=== PATIENT | male | born 1955 | race Caucasian/White ===

== ENCOUNTER 2022-09-13 09:00 | Outpatient (RCR) | payer MEDICARE, BC, SELFPAY | END 2022-09-13 23:59 | disposition home or self-care (01) | LOC: CR 09:00 | PROVIDERS: PCP Family Medicine; Referring Provider Student in an Organized Health Care Education/Training Program; Visit Provider Internal Medicine Cardiovascular Disease | DX: Z51.89 Encounter for other specified aftercare (principal); I25.10 Atherosclerotic heart disease of native coronary artery without angina pectoris; Z95.5 Presence of coronary angioplasty implant and graft | CPT/HCPCS: S9472 ==

== ENCOUNTER 2022-10-13 09:53 | Outpatient (RCR) | payer MEDICARE, BC, SELFPAY | END 2022-10-14 23:59 | disposition home or self-care (01) | LOC: CR 09:53 | PROVIDERS: PCP Family Medicine; Referring Provider Student in an Organized Health Care Education/Training Program; Visit Provider Internal Medicine Cardiovascular Disease | DX: I25.10 Atherosclerotic heart disease of native coronary artery without angina pectoris (principal); Z95.5 Presence of coronary angioplasty implant and graft | CPT/HCPCS: S9472 ==

== ENCOUNTER 2022-11-10 09:51 | Outpatient (RCR) | payer MEDICARE, BC, SELFPAY | END 2022-11-14 23:59 | disposition home or self-care (01) | LOC: CR 09:51 | PROVIDERS: PCP Family Medicine; Referring Provider Student in an Organized Health Care Education/Training Program; Visit Provider Internal Medicine Cardiovascular Disease | DX: I25.10 Atherosclerotic heart disease of native coronary artery without angina pectoris (principal); Z95.5 Presence of coronary angioplasty implant and graft; Z51.89 Encounter for other specified aftercare | CPT/HCPCS: S9472 ==

== ENCOUNTER 2022-12-06 10:26 | Outpatient (RCR) | payer MEDICARE, BC, SELFPAY | END 2022-12-12 23:59 | disposition home or self-care (01) | LOC: CR 10:26 | PROVIDERS: PCP Family Medicine; Referring Provider Student in an Organized Health Care Education/Training Program; Visit Provider Internal Medicine Cardiovascular Disease | DX: I25.10 Atherosclerotic heart disease of native coronary artery without angina pectoris (principal); Z95.5 Presence of coronary angioplasty implant and graft; Z51.89 Encounter for other specified aftercare | CPT/HCPCS: S9472 ==

== ENCOUNTER 2023-01-12 08:56 | Outpatient (RCR) | payer MEDICARE, BC, SELFPAY | END 2023-01-12 23:59 | disposition home or self-care (01) | LOC: CR 08:56 | PROVIDERS: PCP Family Medicine; Referring Provider Student in an Organized Health Care Education/Training Program; Visit Provider Internal Medicine Cardiovascular Disease | DX: I25.10 Atherosclerotic heart disease of native coronary artery without angina pectoris (principal); Z95.5 Presence of coronary angioplasty implant and graft | CPT/HCPCS: S9472 ==

== ENCOUNTER 2023-02-09 09:07 | Outpatient (RCR) | payer MEDICARE, BC, SELFPAY | END 2023-02-11 23:59 | disposition home or self-care (01) | LOC: CR 09:07 | PROVIDERS: PCP Family Medicine; Referring Provider Student in an Organized Health Care Education/Training Program; Visit Provider Internal Medicine Cardiovascular Disease | DX: I25.2 Old myocardial infarction (principal); Z95.5 Presence of coronary angioplasty implant and graft; Z51.89 Encounter for other specified aftercare | CPT/HCPCS: S9472 ==

== ENCOUNTER 2023-02-14 09:13 | Outpatient (RCR) | payer MEDICARE, BC, SELFPAY | END 2023-03-14 23:59 | disposition home or self-care (01) | LOC: CR 09:13 | PROVIDERS: PCP Family Medicine; Referring Provider Student in an Organized Health Care Education/Training Program; Visit Provider Internal Medicine Cardiovascular Disease | DX: I25.10 Atherosclerotic heart disease of native coronary artery without angina pectoris (principal); Z95.5 Presence of coronary angioplasty implant and graft; Z51.89 Encounter for other specified aftercare | CPT/HCPCS: S9472 ==

== ENCOUNTER 2023-03-14 11:05 | Outpatient (RCR) | payer SELFPAY ==
[2023-02-21 11:30] VITALS: BP 165/88; PULSE 81
[2023-02-23 11:01] VITALS: BP 168/83; PULSE 56
[2023-02-28 13:34] VITALS: BP 179/90; PULSE 58
[2023-03-02 11:00] VITALS: BP 163/79; PULSE 90
[2023-03-07 11:07] VITALS: BP 180/81; PULSE 53
[2023-03-09 11:31] VITALS: BP 178/85; PULSE 52
[2023-03-14 11:07] VITALS: BP 164/79; PULSE 51
[2023-03-16 11:20] VITALS: BP 160/85; PULSE 56
== END 2023-03-14 23:59 | disposition home or self-care (01) ==
LOC: CR 11:05
PROVIDERS: PCP Family Medicine; Visit Provider Internal Medicine Cardiovascular Disease

== ENCOUNTER 2023-04-11 11:01 | Outpatient (RCR) | payer SELFPAY ==
[2023-03-15 00:20] VITALS: BP 164/79; PULSE 51
[2023-03-21 10:57] VITALS: BP 175/85; PULSE 50
[2023-03-28 11:10] VITALS: BP 171/80; PULSE 56
[2023-03-30 11:00] VITALS: BP 182/89; PULSE 51
[2023-04-04 11:13] VITALS: BP 182/84; PULSE 73
[2023-04-06 11:10] VITALS: BP 165/69; PULSE 53
[2023-04-11 11:31] VITALS: BP 176/81; PULSE 57
== END 2023-04-13 23:59 | disposition home or self-care (01) ==
LOC: CR 11:01
PROVIDERS: PCP Family Medicine; Visit Provider Internal Medicine Cardiovascular Disease
DX: R69 Illness, unspecified (principal)

== ENCOUNTER 2023-05-11 11:13 | Outpatient (RCR) | payer SELFPAY ==
[2023-04-14 00:08] VITALS: BP 176/81; PULSE 57
[2023-04-18 14:26] VITALS: BP 155/78; PULSE 55
[2023-04-20 11:17] VITALS: BP 156/79; PULSE 58
[2023-04-27 14:16] VITALS: BP 160/70; PULSE 51
[2023-04-27 14:17] VITALS: BP 133/56
[2023-05-02 11:34] VITALS: BP 142/73; PULSE 51
[2023-05-04 11:35] VITALS: BP 145/86; PULSE 78
[2023-05-09 11:06] VITALS: BP 163/87; PULSE 60
[2023-05-11 11:32] VITALS: BP 149/71; PULSE 55
== END 2023-05-14 23:59 | disposition home or self-care (01) ==
LOC: CR 11:13
PROVIDERS: PCP Family Medicine; Visit Provider Internal Medicine Cardiovascular Disease
DX: R69 Illness, unspecified (principal)

== ENCOUNTER 2023-06-08 11:02 | Outpatient (RCR) | payer SELFPAY ==
[2023-05-15 00:12] VITALS: BP 149/71; PULSE 55
[2023-05-16 11:55] VITALS: BP 152/70; PULSE 49
[2023-05-30 10:55] VITALS: BP 156/70; PULSE 47
[2023-06-01 13:20] VITALS: BP 167/80; PULSE 53
[2023-06-06 15:26] VITALS: BP 147/73; PULSE 50
[2023-06-08 11:35] VITALS: BP 159/73; PULSE 53
== END 2023-06-14 23:59 | disposition home or self-care (01) ==
LOC: CR 11:02
PROVIDERS: PCP Family Medicine; Visit Provider Internal Medicine Cardiovascular Disease
DX: R69 Illness, unspecified (principal)

== ENCOUNTER 2023-07-11 11:00 | Outpatient (RCR) | payer SELFPAY ==
[2023-06-15 00:19] VITALS: BP 159/73; PULSE 53
[2023-06-15 13:48] VITALS: BP 155/67; PULSE 49
[2023-06-20 14:56] VITALS: BP 147/74; PULSE 53
[2023-06-27 11:57] VITALS: BP 150/70; PULSE 85
[2023-06-29 11:00] VITALS: BP 158/76; PULSE 55
[2023-07-04 14:52] VITALS: BP 162/75; PULSE 55
[2023-07-06 12:50] VITALS: BP 155/72; PULSE 48
[2023-07-11 11:00] VITALS: BP 155/75; PULSE 52
== END 2023-07-14 23:59 | disposition home or self-care (01) ==
LOC: CR 11:00
PROVIDERS: PCP Family Medicine; Visit Provider Internal Medicine Cardiovascular Disease
DX: R69 Illness, unspecified (principal)

== ENCOUNTER 2023-08-10 11:00 | Outpatient (RCR) | payer SELFPAY ==
[2023-07-15 00:16] VITALS: BP 155/75; PULSE 52
[2023-07-18 11:52] VITALS: BP 151/72; PULSE 51
[2023-07-20 11:12] VITALS: BP 160/74; PULSE 52
[2023-07-25 11:02] VITALS: BP 159/70; PULSE 54
[2023-08-08 10:59] VITALS: BP 152/74; PULSE 54
[2023-08-10 11:14] VITALS: BP 147/69; PULSE 53
== END 2023-08-14 23:59 | disposition home or self-care (01) ==
LOC: CR 11:00
PROVIDERS: PCP Family Medicine; Visit Provider Internal Medicine Cardiovascular Disease
DX: R69 Illness, unspecified (principal)

== ENCOUNTER 2023-08-31 11:09 | Outpatient (RCR) | payer SELFPAY ==
[2023-08-15 00:09] VITALS: BP 155/75; PULSE 52
[2023-08-15 11:00] VITALS: BP 150/76; PULSE 56
[2023-08-17 11:04] VITALS: BP 160/75; PULSE 56
[2023-08-22 11:10] VITALS: BP 141/69; PULSE 48
[2023-08-24 11:23] VITALS: BP 149/75; PULSE 57
[2023-08-31 11:13] VITALS: BP 145/79; PULSE 55
== END 2023-09-13 23:59 | disposition home or self-care (01) ==
LOC: CR 11:09
PROVIDERS: PCP Family Medicine; Visit Provider Internal Medicine Cardiovascular Disease
DX: R69 Illness, unspecified (principal)

== ENCOUNTER 2023-10-12 11:07 | Outpatient (RCR) | payer SELFPAY ==
[2023-09-14 00:20] VITALS: BP 155/75; PULSE 52
[2023-09-28 11:23] VITALS: BP 155/75; PULSE 53
[2023-10-03 15:26] VITALS: BP 144/68; PULSE 53
[2023-10-10 14:29] VITALS: BP 145/70; PULSE 53
[2023-10-12 12:37] VITALS: BP 144/67; PULSE 58
== END 2023-10-14 23:59 | disposition home or self-care (01) ==
LOC: CR 11:07
PROVIDERS: PCP Family Medicine; Visit Provider Internal Medicine Cardiovascular Disease
DX: R69 Illness, unspecified (principal)

== ENCOUNTER 2023-11-14 11:00 | Outpatient (RCR) | payer SELFPAY ==
[2023-10-15 00:21] VITALS: BP 155/75; PULSE 52
[2023-10-19 14:47] VITALS: BP 137/76; PULSE 60
[2023-10-26 11:00] VITALS: BP 152/71; PULSE 64
[2023-11-02 13:41] VITALS: BP 152/75; PULSE 57
[2023-11-14 13:21] VITALS: BP 163/69; PULSE 55
== END 2023-11-14 23:59 | disposition home or self-care (01) ==
LOC: CR 11:00
PROVIDERS: PCP Family Medicine; Visit Provider Internal Medicine Interventional Cardiology
DX: R69 Illness, unspecified (principal)

== ENCOUNTER 2023-12-05 11:00 | Outpatient (RCR) | payer SELFPAY ==
[2023-11-15 00:25] VITALS: BP 155/75; PULSE 52
[2023-11-21 12:34] VITALS: BP 161/79; PULSE 49
[2023-11-23 10:55] VITALS: BP 138/69; PULSE 54
[2023-12-05 10:58] VITALS: BP 141/76; PULSE 53; O2SAT 98
== END 2023-12-13 23:59 | disposition home or self-care (01) ==
LOC: CR 11:00
PROVIDERS: PCP Family Medicine; Visit Provider Internal Medicine Cardiovascular Disease
DX: I25.10 Atherosclerotic heart disease of native coronary artery without angina pectoris (principal); Z51.89 Encounter for other specified aftercare

== ENCOUNTER 2024-01-09 11:12 | Outpatient (RCR) | payer SELFPAY ==
[2023-12-14 00:24] VITALS: BP 155/75; PULSE 52
[2023-12-14 11:51] VITALS: BP 133/66; PULSE 51
[2023-12-19 11:28] VITALS: BP 149/69; PULSE 52
[2023-12-21 11:35] VITALS: BP 127/68; PULSE 51
[2023-12-26 15:14] VITALS: BP 142/70; PULSE 53
[2023-12-28 11:00] VITALS: BP 155/78; PULSE 72; O2SAT 94
[2024-01-02 15:53] VITALS: BP 150/79; PULSE 60
[2024-01-04 11:48] VITALS: BP 142/72; PULSE 57
[2024-01-09 12:30] VITALS: BP 159/77; PULSE 58
== END 2024-01-13 23:59 | disposition home or self-care (01) ==
LOC: CR 11:12
PROVIDERS: PCP Family Medicine; Visit Provider Internal Medicine Cardiovascular Disease
DX: R69 Illness, unspecified (principal)

== ENCOUNTER 2024-02-08 11:06 | Outpatient (RCR) | payer SELFPAY ==
[2024-01-16 12:43] VITALS: BP 154/72; PULSE 51
[2024-01-25 11:27] VITALS: BP 151/74; PULSE 59
[2024-01-30 11:20] VITALS: BP 149/74; PULSE 56
[2024-02-01 12:29] VITALS: BP 141/69; PULSE 50
[2024-02-06 15:26] VITALS: BP 133/69; PULSE 54
[2024-02-08 11:00] VITALS: BP 134/68; PULSE 59
== END 2024-02-12 23:59 | disposition home or self-care (01) ==
LOC: CR 11:06
PROVIDERS: PCP Family Medicine; Visit Provider Internal Medicine Cardiovascular Disease
DX: R69 Illness, unspecified (principal)

== ENCOUNTER 2024-03-14 11:00 | Outpatient (RCR) | payer SELFPAY ==
[2024-02-13 11:13] VITALS: BP 125/66; PULSE 56
[2024-02-15 15:05] VITALS: BP 129/66; PULSE 62
[2024-02-20 11:00] VITALS: BP 126/64; PULSE 54; O2SAT 98
[2024-02-27 13:01] VITALS: BP 125/72; PULSE 58
[2024-02-29 11:31] VITALS: BP 124/69; PULSE 60
[2024-03-05 13:30] VITALS: BP 124/66; PULSE 56
[2024-03-07 11:00] VITALS: BP 121/66; PULSE 59
[2024-03-14 11:00] VITALS: BP 136/73; PULSE 59
== END 2024-03-14 23:59 | disposition home or self-care (01) ==
LOC: CR 11:00
PROVIDERS: PCP Family Medicine; Visit Provider Internal Medicine Cardiovascular Disease
DX: R69 Illness, unspecified (principal)

== ENCOUNTER 2024-04-09 10:59 | Outpatient (RCR) | payer SELFPAY ==
[2024-03-19 16:18] VITALS: BP 122/68; PULSE 59
[2024-03-26 11:25] VITALS: BP 137/82; PULSE 62
[2024-03-28 11:29] VITALS: BP 123/71; PULSE 81
[2024-04-02 13:52] VITALS: BP 132/80; PULSE 71
[2024-04-04 11:56] VITALS: BP 122/66; PULSE 57
[2024-04-09 15:42] VITALS: BP 136/84; PULSE 57
== END 2024-04-13 23:59 | disposition home or self-care (01) ==
LOC: CR 10:59
PROVIDERS: PCP Family Medicine; Visit Provider Internal Medicine Cardiovascular Disease
DX: R69 Illness, unspecified (principal)

== ENCOUNTER 2024-06-11 11:19 | Outpatient (RCR) | payer SELFPAY ==
[2024-05-16 11:12] VITALS: BP 134/78; PULSE 80
[2024-05-21 11:21] VITALS: BP 146/79; PULSE 57
[2024-05-28 12:55] VITALS: BP 145/72; PULSE 57
[2024-05-30 12:55] VITALS: BP 138/78; PULSE 58
[2024-06-04 12:20] VITALS: BP 137/70; PULSE 56
[2024-06-06 11:09] VITALS: BP 138/72; PULSE 54
[2024-06-11 11:26] VITALS: BP 126/76; PULSE 75
== END 2024-06-14 23:59 | disposition home or self-care (01) ==
LOC: CR 11:19
PROVIDERS: PCP Family Medicine; Visit Provider Internal Medicine Cardiovascular Disease
DX: R69 Illness, unspecified (principal)

== ENCOUNTER 2024-07-09 11:32 | Outpatient (RCR) | payer SELFPAY ==
[2024-06-15 00:18] VITALS: BP 126/76; PULSE 75
[2024-06-18 11:00] VITALS: BP 144/74; PULSE 57; O2SAT 98
[2024-06-20 11:02] VITALS: BP 133/77; PULSE 50
[2024-06-27 11:11] VITALS: BP 135/75; PULSE 55
[2024-07-02 12:54] VITALS: BP 113/73; PULSE 64
[2024-07-09 11:43] VITALS: BP 139/70; PULSE 53
== END 2024-07-14 23:59 | disposition home or self-care (01) ==
LOC: CR 11:32
PROVIDERS: PCP Family Medicine; Visit Provider Internal Medicine Cardiovascular Disease
DX: R69 Illness, unspecified (principal)

== ENCOUNTER 2024-08-13 11:12 | Outpatient (RCR) | payer SELFPAY ==
[2024-07-16 11:09] VITALS: BP 130/69; PULSE 56
[2024-07-30 14:15] VITALS: BP 148/76; PULSE 60
[2024-08-01 12:59] VITALS: BP 123/56; PULSE 51
[2024-08-06 11:11] VITALS: BP 135/73; PULSE 58; O2SAT 95
[2024-08-08 11:11] VITALS: BP 116/67; PULSE 48
[2024-08-13 11:19] VITALS: BP 120/65; PULSE 65
== END 2024-08-14 23:59 | disposition home or self-care (01) ==
LOC: CR 11:12
PROVIDERS: PCP Family Medicine; Visit Provider Internal Medicine Cardiovascular Disease
DX: R69 Illness, unspecified (principal)

== ENCOUNTER 2024-09-03 10:58 | Outpatient (RCR) | payer SELFPAY ==
[2024-09-03 11:31] VITALS: BP 130/72; PULSE 58
== END 2024-09-13 23:59 | disposition home or self-care (01) ==
LOC: CR 10:58
PROVIDERS: PCP Family Medicine; Visit Provider Internal Medicine Cardiovascular Disease
DX: R69 Illness, unspecified (principal)

== ENCOUNTER 2024-10-01 11:04 | Outpatient (RCR) | payer SELFPAY ==
[2024-09-14 00:15] VITALS: BP 130/72; PULSE 58
[2024-09-17 11:26] VITALS: BP 138/66; PULSE 54
[2024-09-26 11:18] VITALS: BP 141/72; PULSE 55; O2SAT 94
[2024-10-01 11:58] VITALS: BP 156/78; PULSE 65; O2SAT 97
== END 2024-10-14 23:59 | disposition home or self-care (01) ==
LOC: CR 11:04
PROVIDERS: PCP Family Medicine; Visit Provider Internal Medicine Cardiovascular Disease
DX: R69 Illness, unspecified (principal)

== ENCOUNTER 2024-11-07 10:56 | Outpatient (RCR) | payer SELFPAY ==
[2024-10-17 13:25] VITALS: BP 121/68; PULSE 58
[2024-10-22 12:30] VITALS: BP 138/76; PULSE 64; O2SAT 96
[2024-10-31 11:09] VITALS: BP 155/86; PULSE 59
[2024-11-07 11:11] VITALS: BP 132/79; PULSE 74; O2SAT 96
== END 2024-11-14 23:59 | disposition home or self-care (01) ==
LOC: CR 10:56
PROVIDERS: PCP Family Medicine; Visit Provider Internal Medicine Cardiovascular Disease
DX: R69 Illness, unspecified (principal)

== ENCOUNTER 2025-01-09 11:00 | Outpatient (RCR) | payer SELFPAY ==
[2024-12-17 11:15] VITALS: BP 141/77; PULSE 59; O2SAT 96
[2024-12-31 11:18] VITALS: BP 134/81; PULSE 67
[2025-01-07 11:31] VITALS: BP 136/78; PULSE 78
[2025-01-09 11:28] VITALS: BP 143/65; PULSE 61; O2SAT 96
== END 2025-01-12 23:59 | disposition home or self-care (01) ==
LOC: CR 11:00
PROVIDERS: PCP Family Medicine; Visit Provider Internal Medicine Cardiovascular Disease
DX: R69 Illness, unspecified (principal)

== ENCOUNTER 2025-02-06 11:03 | Outpatient (RCR) | payer SELFPAY ==
[2025-01-13 00:02] VITALS: BP 143/65; PULSE 61
[2025-01-14 11:17] VITALS: BP 144/83; PULSE 76
[2025-01-16 12:21] VITALS: BP 139/72; PULSE 58
[2025-02-04 11:25] VITALS: BP 137/73; PULSE 61
[2025-02-06 11:09] VITALS: BP 152/76; PULSE 59
== END 2025-02-11 23:59 | disposition home or self-care (01) ==
LOC: CR 11:03
PROVIDERS: PCP Family Medicine; Visit Provider Internal Medicine Cardiovascular Disease
DX: R69 Illness, unspecified (principal)

== ENCOUNTER 2025-03-11 10:50 | Outpatient (RCR) | payer SELFPAY ==
[2025-02-12 00:14] VITALS: BP 143/65; PULSE 61
[2025-02-13 11:13] VITALS: BP 137/73; PULSE 61; O2SAT 97
[2025-02-18 11:10] VITALS: BP 142/67; PULSE 58
[2025-02-20 11:15] VITALS: BP 144/74; PULSE 57; O2SAT 99
[2025-02-25 11:35] VITALS: BP 132/70; PULSE 75; O2SAT 97
[2025-02-27 11:14] VITALS: BP 141/75; PULSE 56; O2SAT 97
[2025-03-04 11:16] VITALS: BP 145/75; PULSE 59
[2025-03-11 11:25] VITALS: BP 142/72; PULSE 54; O2SAT 98
== END 2025-03-14 23:59 | disposition home or self-care (01) ==
LOC: CR 10:50
PROVIDERS: PCP Family Medicine; Visit Provider Internal Medicine Cardiovascular Disease
DX: R69 Illness, unspecified (principal)

== ENCOUNTER 2025-04-08 11:00 | Outpatient (RCR) | payer SELFPAY ==
[2025-03-15 00:21] VITALS: BP 143/65; PULSE 61
[2025-03-18 11:28] VITALS: BP 115/75; PULSE 68
[2025-03-25 11:02] VITALS: BP 124/73; PULSE 64
[2025-03-27 10:58] VITALS: BP 131/79; PULSE 91
[2025-04-01 11:57] VITALS: BP 143/65; PULSE 57
[2025-04-03 11:27] VITALS: BP 130/67; PULSE 70
[2025-04-08 11:08] VITALS: BP 120/67; PULSE 53
== END 2025-04-13 23:59 | disposition home or self-care (01) ==
LOC: CR 11:00
PROVIDERS: PCP Family Medicine; Visit Provider Internal Medicine Cardiovascular Disease
DX: R69 Illness, unspecified (principal)

== ENCOUNTER 2025-05-13 11:00 | Outpatient (RCR) | payer SELFPAY ==
[2025-04-15 11:20] VITALS: BP 157/74; PULSE 58
[2025-04-22 15:16] VITALS: BP 135/71; PULSE 58; O2SAT 95
[2025-04-29 11:00] VITALS: BP 111/65; PULSE 66
[2025-05-08 11:35] VITALS: BP 127/68; PULSE 56; O2SAT 100
[2025-05-13 12:57] VITALS: BP 123/70; PULSE 61
== END 2025-05-14 23:59 | disposition home or self-care (01) ==
LOC: CR 11:00
PROVIDERS: PCP Family Medicine; Visit Provider Internal Medicine Cardiovascular Disease
DX: R69 Illness, unspecified (principal)

== ENCOUNTER 2025-06-03 11:00 | Outpatient (RCR) | payer SELFPAY ==
[2025-05-15 00:24] VITALS: BP 123/70; PULSE 61
[2025-05-15 11:25] VITALS: BP 134/77; PULSE 52; O2SAT 99
[2025-05-22 11:05] VITALS: BP 131/75; PULSE 56; O2SAT 97
[2025-05-29 11:12] VITALS: BP 128/59; PULSE 54; O2SAT 97
[2025-06-03 11:37] VITALS: BP 154/81; PULSE 76; O2SAT 100
== END 2025-06-14 23:59 | disposition home or self-care (01) ==
LOC: CR 11:00
PROVIDERS: PCP Family Medicine; Visit Provider Internal Medicine Cardiovascular Disease
DX: R69 Illness, unspecified (principal)

== ENCOUNTER 2025-08-07 11:00 | Outpatient (RCR) | payer SELFPAY ==
[2025-07-15 11:13] VITALS: BP 118/76; PULSE 75; O2SAT 96
[2025-07-17 11:14] VITALS: BP 134/68; PULSE 57
[2025-07-24 11:00] VITALS: BP 133/64; PULSE 57; O2SAT 99
[2025-07-29 12:36] VITALS: BP 145/71; PULSE 59; O2SAT 95
[2025-08-05 11:19] VITALS: BP 123/67; PULSE 97
[2025-08-07 11:00] VITALS: BP 133/68; PULSE 73; O2SAT 96
== END 2025-08-14 23:59 | disposition home or self-care (01) ==
LOC: CR 11:00
PROVIDERS: PCP Family Medicine; Visit Provider Internal Medicine Cardiovascular Disease
DX: R69 Illness, unspecified (principal)

== ENCOUNTER 2025-09-04 11:00 | Outpatient (RCR) | payer SELFPAY ==
[2025-08-19 12:13] VITALS: BP 146/66; PULSE 59; O2SAT 98
[2025-08-21 11:00] VITALS: BP 129/66; PULSE 73
[2025-08-28 11:00] VITALS: BP 140/66; PULSE 57; O2SAT 99
[2025-09-04 11:00] VITALS: BP 144/81; PULSE 51; O2SAT 96
== END 2025-09-13 23:59 | disposition home or self-care (01) ==
LOC: CR 11:00
PROVIDERS: PCP Family Medicine; Visit Provider Internal Medicine Cardiovascular Disease
DX: R69 Illness, unspecified (principal)

== ENCOUNTER 2025-09-30 11:00 | Outpatient (RCR) | payer SELFPAY ==
[2025-09-18 11:00] VITALS: BP 126/73; PULSE 85
[2025-09-30 12:47] VITALS: BP 136/71; PULSE 56; O2SAT 99
== END 2025-10-14 23:59 | disposition home or self-care (01) ==
LOC: CR 11:00
PROVIDERS: PCP Family Medicine; Visit Provider Internal Medicine Cardiovascular Disease
DX: R69 Illness, unspecified (principal)